=== PATIENT | male | born 1950 | race Caucasian/White ===

== ENCOUNTER 2017-08-26 19:11 | Emergency (ER) | payer MEDICARE ==
--- NOTE | 2017-08-26 20:09 | RAD ---
RIGHT SHOULDER THREE VIEWS: 08/26/17 HISTORY: Pain. Injury. Patient tripped and fell. The visualized right ribs do not demonstrate posttraumatic change. Glenohumeral joint space is preser julissa. No fracture or dislocation. IMPRESSION: No fracture or dislocation. POS: [facility]
[2017-08-26] MEDS ORDERED: HYDROcodone/Acetaminophen 5/325 mg Tablet ONE (20:32)
== END 2017-08-26 20:43 | disposition home or self-care (01) ==
LOC: SCSER 19:11
DX: S43.401A Unspecified sprain of right shoulder joint, initial encounter (principal); E78.5 Hyperlipidemia, unspecified; J44.9 Chronic obstructive pulmonary disease, unspecified; F41.9 Anxiety disorder, unspecified; F32.9 Major depressive disorder, single episode, unspecified; Z87.891 Personal history of nicotine dependence; W01.0XXA Fall on same level from slipping, tripping and stumbling without subsequent striking against object, initial encounter

== ENCOUNTER 2018-06-07 14:28 | Outpatient (CLI) | payer MEDICARE ==
--- NOTE | 2018-06-07 16:03 | BD ---
DEXA BONE DENSITY EXAM: HISTORY: A 67-year-old male with osteoporosis. FINDINGS: Lumbar Spine: BMD (g/cm2) L1 1.093 T-Score: 0.2 L2 1.205 T-Score: 1.0 L3 1.355 T-Score: 2.3 L4 1.347 T-Score: 2.3 L1-L4 1.256 T-Score: 1.5 Femoral Neck: 0.887 T-Score: -0.3 Total Femur: 1.084 T-Score: 0.3 Impression: Normal bone mineral density. POS: [facility]
== END 2018-06-07 14:29 | disposition home or self-care (01) ==
LOC: BICMAMMO 14:28
PROVIDERS: ATTEND Family Medicine
DX: Z13.820 Encounter for screening for osteoporosis (principal)
CPT/HCPCS: 77080

== ENCOUNTER 2018-09-26 15:01 | Outpatient (CLI) | payer MEDICARE ==
--- NOTE | 2018-09-26 15:55 | ULT ---
EXAM: Right lower extremity venous duplex ultrasound with color and spectral Doppler imaging: HISTORY: Right leg pain COMPARISON: None FINDINGS: Exam performed from the groin to the ankle including the visualized greater saphenous, common femoral , superficial femoral, profunda femoral, popliteal, trifurcation, and posterior tibial veins. Evidence for intraluminal thrombus with decreased compressibility and near complete obstruction of th e posterior tibial veins. The more proximal veins are all unremarkable. IMPRESSION: Evidence for deep venous thrombosis involving the posterior tibial veins. Findings were discussed with the ordering physician by the sleep technologist at the time of thi s dictation. Patient was taken to the emergency room per doctor's order. CODE CR
== END 2018-09-26 15:02 | disposition home or self-care (01) ==
LOC: SCSULT 15:01
PROVIDERS: ATTEND Family Medicine
DX: M79.604 Pain in right leg (principal); I82.441 Acute embolism and thrombosis of right tibial vein

== ENCOUNTER 2018-09-26 15:41 | Emergency (ER) | payer MEDICARE ==
[2018-09-26] MEDS ORDERED: Enoxaparin Sodium 80 MG/0.8 ML SYRINGE ONE (16:53)
[2018-09-26] MEDS ORDERED: Aspirin Chewable 81 MG TAB ONE (16:53)
[2018-09-26 17:00] LABS: Eosinophils 4 % (0-10); Hemoglobin 14.3 g/dL (14.0-18.0); Lymphocytes 31 % (21-51); MDiff Complete? YES; Mean Corpuscular Hemoglobin 29.4 pg (27.0-31.0); Mean Corpuscular Volume 86.6 fL (78.0-98.0); Mean Platelet Volume 7.3 fL (7.4-10.4); Monocytes 4 % (0-10); Neutrophil 61 % (42-75); Platelet Count 164 thou/uL (130-400); Platelet Morphology Comment Appears Adequate; RBC Distribution Width 12.5 % (11.5-14.5); Red Blood Cell (RBC) Count 4.86 mill/uL (4.70-6.10); White Blood Cell (WBC) Count 7.3 thou/uL (4.8-10.8)
[2018-09-26 17:04] LABS: Anion Gap 16 mmol/L (10-20); BUN (Urea Nitrogen) 16 mg/dL (8.4-25.7); Calc. Creatinine Clearance 0 mL/min (70-130); Calcium 9.7 mg/dL (7.8-10.44); Carbon Dioxide 23 mmol/L (23-31); Chloride 105 mmol/L (98-107); Estimated GFR-MDRD 54; Glucose 85 mg/dL (80-115); Potassium 4.2 mmol/L (3.5-5.1); Sodium 140 mmol/L (136-145)
[2018-09-26 17:19] LABS: PTT 25.2 SEC (22.9-36.1); Prothrombin Time 13.2 SEC (12.0-14.7)
--- NOTE | 2018-09-26 19:33 | CT ---
CTA CHEST WITH CONTRAST: HISTORY: DVT in the right posterior tibial veins. The patient is fairly immobile. Chronic dyspnea. COMPARISON: None. TECHNIQUE: Multiple contiguous axial images were obtained in a CTA chest with contrast, and 3D oblique MIP refor mats and direct coronal reformats were performed. FINDINGS: The pulmonary arteries are well opacified without filling defects to suggest pulmonary emboli. The h eart is normal in size without focal cardiac abnormality. No hilar or mediastinal lymphadenopathy is seen. Paraseptal emphysematous changes are seen in the lungs. No pleural effusion or pneumothorax is seen. No suspicious nodules are seen. No focal infiltrates are present. Mild degenerative changes are seen in the spine. The visualized subdiaphragmatic structures are unre markable. IMPRESSION: 1. No evidence of pulmonary thromboembolism. 2. Emphysema. POS: [facility]
== END 2018-09-26 18:14 | disposition home or self-care (01) ==
LOC: SCSER 15:41
DX: I82.441 Acute embolism and thrombosis of right tibial vein (principal); F41.9 Anxiety disorder, unspecified; F32.9 Major depressive disorder, single episode, unspecified; Z87.891 Personal history of nicotine dependence
CPT/HCPCS: 36415; 71275; 80048; 85025; 85610; 85730; 96372; J1650